=== PATIENT | female | born 1990 | race Caucasian/White ===

== ENCOUNTER 2018-03-31 09:46 | Emergency (ER) | payer OTHER, SELFPAY ==
[2018-03-31 09:47] VITALS: BP 153/79; PULSE 53; RESP 19; TEMP 37.1; O2SAT 99; BMI 27.0
--- NOTE | 2018-03-31 11:06 | ED.VISSUMM ---
- ER Visit Summary Date of Service: 03/31/18 Chief Complaint: [] Left ankle injury yesterday History of Present Illness: The patient is a 27 F [] was running advertently stepped into a hole left ankle twisted comes in for evaluation prior history of fracture in that ankle as a youth otherwise no complaints Physical Examination: [] Her general exams unremarkable see template head neck chest really unremarkable the left ankle there is a mild amount of swelling diffusely over the ankle she is able dorsi and plantarflex her some contusion the foot is nontender neurovascular function pulses are normal the skin is intact Test Results: [] Emergency Department Course and Treatment: [] The patient had an x-ray that shows no acute abnormality of cautioned her about the possibility of an occult injury she is placed in Airc[employer] crutches she will follow with orthopedics she is training for marathon I have advised her not to do that until she follows up with orthopedics, as I cautioned her about the possibility of occult injury Treatment Plan: [] Disposition: [] Home stable Impression: [] Acute left ankle injury This note was generated with [employer] dictation software. It may contain incorrect words, spelling, and punctuation that were not noted in review of the chart prior to signing ED Disposition - Plan for ED Patient: Chief Complaint: Lower Extremity Injury Referrals: NOT,DEFINED [Primary Care Provider] -
--- NOTE | 2018-03-31 11:07 | ED.DEP ---
ED Disposition - Plan for ED Patient: Chief Complaint: Lower Extremity Injury Instructions: ED Sprain Ankle W X Ray Prescriptions: Naproxen [Naprosyn] 500 mg PO BID PRN #20 tab Referrals: NOT,DEFINED [Primary Care Provider] -
[2018-03-31 11:37] VITALS: BP 113/62; PULSE 57; RESP 16; O2SAT 100
== END 2018-03-31 11:38 | disposition home or self-care (01) ==
LOC: ED 11:29
PROVIDERS: Emergency Provider Emergency Medicine
DX: S99.912A Unspecified injury of left ankle, initial encounter (principal); W17.2XXA Fall into hole, initial encounter; Y93.02 Activity, running; Y92.9 Unspecified place or not applicable; Y99.9 Unspecified external cause status
CPT/HCPCS: 73610; 99284